=== PATIENT | female | born 1995 | race Two or more races ===

== ENCOUNTER 2016-10-11 21:01 | Emergency (ER) | payer OTHER ==
[~2016-10-11] VITALS: Ht 170.2 cm; Wt 63.5 kg
[2016-10-11 21:28] VITALS: BP 125/81
[2016-10-11] MEDS ORDERED: MAG HYDROX/AL HYDROX/SIMETH 30 ML UDC ONE (21:54)
[2016-10-11] MEDS ORDERED: LIDOCAINE VISCOUS 2% UD 15 ML UDC ONE (21:54)
[2016-10-11] MEDS ORDERED: MAG HYDROX/AL HYDROX/SIMETH 30 ML UDC PO ONE (22:00)
[2016-10-11] MEDS ORDERED: LIDOCAINE VISCOUS 2% UD 15 ML UDC MM ONE (22:00)
[2016-10-11] MEDS ORDERED: BELLADONNA /PHENOBARB 5 ML UDC 5 ML UDC PO ONE (22:00)
== END 2016-10-11 22:02 | disposition home or self-care (01) ==
LOC: ER 21:01
DX: K22.4 Dyskinesia of esophagus (principal)
CPT/HCPCS: 99282; A4606; Z7610

== ENCOUNTER 2017-06-19 22:46 | Emergency (ER) | payer OTHER ==
[~2017-06-19] VITALS: Ht 170.2 cm; Wt 59.0 kg
[2017-06-19 23:06] VITALS: BP 112/69
== END 2017-06-20 00:03 | disposition home or self-care (01) ==
LOC: ER 22:46
DX: H91.92 Unspecified hearing loss, left ear (principal)
CPT/HCPCS: A4606; Z7502; Z7610